=== PATIENT | male | born 1970 | race Caucasian/White ===

== ENCOUNTER 2018-11-12 08:58 | Emergency (ER) | payer OTHER ==
[2018-11-12] MEDS ORDERED: HYDROCODONE/APAP 10/325 TAB ONE (09:43)
[2018-11-12] MEDS ORDERED: IBUPROFEN 400 MG TAB ONE (09:43)
[2018-11-12] MEDS ORDERED: IBUPROFEN 200 MG TAB PO ONE (09:43)
--- NOTE | 2018-11-12 09:49 | EDPHYS ---
Physician Documentation [facility] Name: Daniel Murray Age: 48 yrs Sex: Male : 1970 Arrival Date: 11/12/2018 Time: 09:03 Bed 15 Private MD: ED Physician Moo Betancourt HPI: 11/12 09:34 This 48 yrs old Male presents to ER via Ambulatory with complaints of Wrist carlos Injury. 09:34 The patient or guardian reports decreased range of motion, pain, swelling, tenderness. carlos Historical: - Allergies: 09:14 No Known Allergies; tw2 - Home Meds: 09:14 None [Active]; tw2 - PMHx: 09:14 None; tw2 - PSHx: 09:14 None; tw2 - Immunization history:: Adult Immunizations. - Social history:: Smoking status: . - Ebola Screening: : No symptoms or risks identified at this time. - Family history:: not pertinent. ROS: 09:34 Constitutional: Negative for fever, chills, and weight loss, Eyes: Negative for injury, carlos pain, redness, and discharge, ENT: Negative for injury, pain, and discharge, Neck: Negative for injury, pain, and swelling, Cardiovascular: Negative for chest pain, palpitations, and edema, Respiratory: Negative for shortness of breath, cough, wheezing, and pleuritic chest pain, Abdomen/GI: Negative for abdominal pain, nausea, vomiting, diarrhea, and constipation, Back: Negative for injury and pain, : Negative for injury, bleeding, discharge, and swelling, Skin: Negative for injury, rash, and discoloration, Neuro: Negative for headache, weakness, numbness, tingling, and seizure, Psych: Negative for depression, anxiety, suicide ideation, homicidal ideation, and hallucinations, Allergy/Immunology: Negative for hives, rash, and allergies, Endocrine: Negative for neck swelling, polydipsia, polyuria, polyphagia, and marked weight changes, Hematologic/Lymphatic: Negative for swollen nodes, abnormal bleeding, and unusual bruising. 09:34 MS/extremity: Positive for decreased range of motion, pain, swelling, tenderness, of the right wrist. Exam: 09:34 Constitutional: This is a well developed, well nourished patient who is awake, alert, carlos and in no acute distress. Head/Face: Normocephalic, atraumatic. Eyes: Pupils equal round and reactive to light, extra-ocular motions intact. Lids and lashes normal. Conjunctiva and sclera are non-icteric and not injected. Cornea within normal limits. Periorbital areas with no swelling, redness, or edema. ENT: Nares patent. No nasal discharge, no septal abnormalities noted. Tympanic membranes are normal and external auditory canals are clear. Oropharynx with no redness, swelling, or masses, exudates, or evidence of obstruction, uvula midline. Mucous membranes moist. Neck: Trachea midline, no thyromegaly or masses palpated, and no cervical lymphadenopathy. Supple, full range of motion without nuchal rigidity, or vertebral point tenderness. No Meningismus. Chest/axilla: Normal chest wall appearance and motion. Nontender with no deformity. No lesions are appreciated. Cardiovascular: Regular rate and rhythm with a normal S1 and S2. No gallops, murmurs, or rubs. Normal PMI, no JVD. No pulse deficits. Respiratory: Lungs have equal breath sounds bilaterally, clear to auscultation and percussion. No rales, rhonchi or wheezes noted. No increased work of breathing, no retractions or nasal flaring. Abdomen/GI: Soft, non-tender, with normal bowel sounds. No distension or tympany. No guarding or rebound. No evidence of tenderness throughout. Back: No spinal tenderness. No costovertebral tenderness. Full range of motion. Male : Normal genitalia with no discharge or lesions. Skin: Warm, dry with normal turgor. Normal color with no rashes, no lesions, and no evidence of cellulitis. Neuro: Awake and alert, GCS 15, oriented to person, place, time, and situation. Cranial nerves II-XII grossly intact. Motor strength 5/5 in all extremities. Sensory grossly intact. Cerebellar exam normal. Normal gait. Psych: Awake, alert, with orientation to person, place and time. Behavior, mood, and affect are within normal limits. 09:34 Musculoskeletal/extremity: ROM: limited active range of motion, limited passive range of motion, limited active range of motion due to pain, limited passive range of motion due to pain, Circulation is intact in all extremities. Sensation intact. Compartment Syndrome exam of affected extremity: is normal. DVT Exam: No signs of deep vein thrombosis. no pain, no swelling, no tenderness, negative Homans' sign noted on exam, no appreciated bluish discoloration, no erythema, no increased warmth. Vital Signs: 09:13 BP 130 / 82; Pulse 78; Resp 18; Temp 97.8(O); Pulse Ox 95% on R/A; Weight 104.33 kg tw2 (R); Height 5 ft. 11 in. (180.34 cm) (R); Pain 6/10; 10:04 BP 127 / 77; Pulse 78; Resp 18; Pulse Ox 100% on R/A; tw2 09:13 Body Mass Index 32.08 (104.33 kg, 180.34 cm) tw2 MDM: 09:05 Patient medically screened. [facility] 09:43 Data reviewed: vital signs, nurses notes, radiologic studies, plain films. [facility] 11/12 09:15 Order name: XRAY Wrist RIGHT 3 view [facility] 11/12 09:33 Order name: Sugar Tong Forearm Splint; Complete Time: 10:00 [facility] 11/12 09:33 Order name: Sling; Complete Time: 10:00 [facility] Administered Medications: 09:45 Drug: Motrin 600 mg Route: PO; tw2 10:04 Follow up: Response: No adverse reaction tw2 09:45 Drug: Collins 10 mg-325 mg 1 tabs Route: PO; tw2 10:04 Follow up: Response: No adverse reaction; Pain is unchanged, physician notified; RASS: tw2 Alert and Calm (0) Disposition: 11/12/18 09:48 Discharged to Home. Impression: Nondisplaced fracture of neck of left radius. - Condition is Stable. - Discharge Instructions: Wrist Fracture Treated With Immobilization, Wrist Pain, Wrist Splint, Wrist Splint, [id number], Wrist Fracture Treated With Immobilization, [id number], Wrist Pain, [id number]. - Prescriptions for Ibuprofen 600 mg Oral Tablet - take 1 tablet by ORAL route every 8 hours As needed take with food; 21 tablet. Tylenol- Codeine #3 300-30 mg Oral Tablet - take 2 tablet by ORAL route every 6 hours As needed; 30 tablet. - Medication Reconciliation Form, Thank You Letter, Antibiotic Education, Prescription Opioid Use, Work release form form. - Follow up: Private Physician; When: 2 - 3 days; Reason: Recheck today's complaints, Re-evaluation by your physician. Follow up: Sheldon Bee MD; When: 2 - 3 days; Reason: Recheck today's complaints, Continuance of care, Re-evaluation by your physician. - Problem is new. - Symptoms have improved. Signatures: Dispatcher [employer] EDMoo Yang MD MD cha Wise, Tara RN RN tw2 Corrections: (The following items were deleted from the chart) 09:37 09:33 Ice pack ordered. carlos 2 10:05 09:48 11/12/2018 09:48 Discharged to Home. Impression: Nondisplaced fracture of neck of tw2 left radius. Condition is Stable. Forms are Work release form, Medication Reconciliation Form, Thank You Letter, Antibiotic Education, Prescription Opioid Use. Follow up: Private Physician; When: 2 - 3 days; Reason: Recheck today's complaints, Re-evaluation by your physician. Follow up: Dr. Sheldon Bee; When: 2 - 3 days; Reason: Recheck today's complaints, Continuance of care, Re-evaluation by your physician. Problem is new. Symptoms have improved. carlos
--- NOTE | 2018-11-12 09:49 | ER ---
[facility] Name: Daniel Murray Age: 48 yrs Sex: Male : 1970 Arrival Date: 11/12/2018 Time: 09:03 Bed 15 Private MD: Diagnosis: Nondisplaced fracture of neck of left radius Presentation: 11/12 09:11 Presenting complaint: Patient states: i fell yesterday and landed on my right wrist. tw2 Transition of care: patient was not received from another setting of care. Onset of symptoms was November 12, 2018. Risk Assessment: Do you want to hurt yourself or someone else? Patient reports no desire to harm self or others. Initial Sepsis Screen: Does the patient meet any 2 criteria? No. Patient's initial sepsis screen is negative. Does the patient have a suspected source of infection? No. Patient's initial sepsis screen is negative. Care prior to arrival: None. 09:11 Method Of Arrival: Ambulatory tw2 09:11 Acuity: SABA 4 tw2 Triage Assessment: 09:12 General: Appears in no apparent distress. Behavior is calm, cooperative, appropriate tw2 for age. Pain: Complains of pain in right wrist. EENT: No signs and/or symptoms were reported regarding the EENT system. Neuro: Level of Consciousness is awake, alert, obeys commands, Oriented to person, place, time, situation. Cardiovascular: Patient's skin is warm and dry. Respiratory: Airway is patent Respiratory effort is even, unlabored, Respiratory pattern is regular, symmetrical. Derm: No signs and/or symptoms reported regarding the dermatologic system. Musculoskeletal: Circulation, motion, and sensation intact. Range of motion: intact in all extremities, Swelling present in right wrist. Injury Description: from fall from standing. Historical: - Allergies: 09:14 No Known Allergies; tw2 - Home Meds: 09:14 None [Active]; tw2 - PMHx: 09:14 None; tw2 - PSHx: 09:14 None; tw2 - Immunization history:: Adult Immunizations. - Social history:: Smoking status: . - Ebola Screening: : No symptoms or risks identified at this time. - Family history:: not pertinent. Screenin:06 Abuse screen: Denies threats or abuse. Nutritional screening: No deficits noted. tw2 Tuberculosis screening: No symptoms or risk factors identified. Fall Risk None identified. Assessment: 09:14 Reassessment: see triage assessment. tw2 10:03 Reassessment: Patient appears in no apparent distress at this time. No changes from tw2 previously documented assessment. Patient and/or family updated on plan of care and expected duration. Pain level reassessed. Patient is alert, oriented x 3, equal unlabored respirations, skin warm/dry/pink. Vital Signs: 09:13 BP 130 / 82; Pulse 78; Resp 18; Temp 97.8(O); Pulse Ox 95% on R/A; Weight 104.33 kg tw2 (R); Height 5 ft. 11 in. (180.34 cm) (R); Pain 6/10; 10:04 BP 127 / 77; Pulse 78; Resp 18; Pulse Ox 100% on R/A; tw2 09:13 Body Mass Index 32.08 (104.33 kg, 180.34 cm) tw2 ED Course: 09:03 Patient arrived in ED. mr 09:05 Moo Betancourt MD is Attending Physician. carlos 09:05 Cyndee Rodriguez RN is Primary Nurse. tw2 09:06 Arm band placed on. tw2 09:07 Bed in low position. tw2 09:12 Triage completed. tw2 09:34 XRAY Wrist RIGHT 3 view In Process Unspecified. EDMS 09:43 Sheldon Bee MD is Referral Physician. carlos 10:01 Orthoglass splint: Sugar tong splint applied on right arm. Sling applied to right arm. mh5 10:04 No provider procedures requiring assistance completed. Patient did not have IV access tw2 during this emergency room visit. Administered Medications: 09:45 Drug: Motrin 600 mg Route: PO; tw2 10:04 Follow up: Response: No adverse reaction tw2 09:45 Drug: Tok 10 mg-325 mg 1 tabs Route: PO; tw2 10:04 Follow up: Response: No adverse reaction; Pain is unchanged, physician notified; RASS: tw2 Alert and Calm (0) Outcome: 09:48 Discharge ordered by . carlos 10:04 Discharged to home ambulatory. tw2 10:04 Discharged to home ambulatory, with significant other. 10:04 Condition: stable 10:04 Discharge instructions given to patient, significant other. 10:04 Discharge instructions given to patient, significant other, Instructed on discharge instructions, follow up and referral plans. no drinking with medication, no driving heavy equipment, medication usage, splint care Demonstrated understanding of instructions, follow-up care, medications, splint care, Prescriptions given X 2. 10:05 Patient left the ED. tw2 Signatures: Dispatcher [employer] EDMoo Yang MD MD cha Rivera, Mary mr Wise, Tara, RN RN 2 [facility]
--- NOTE | 2018-11-12 10:02 | RAD REPORT ---
EXAM DESCRIPTION: RAD - Wrist Right 3 View - 11/12/2018 9:33 am CLINICAL HISTORY: Right wrist pain status post injury FINDINGS: Cortical irregularity involves the distal posterior radius. Given the adjacent soft tissue swelling this is suspicious for a subtle fracture. No dislocation
[2018-11-12 10:15] VITALS: BP 127/77; O2SAT 100
[2018-11-12 10:17] VITALS: TEMP 97.8
== END 2018-11-12 10:05 | disposition home or self-care (01) ==
LOC: ER 08:58
DX: S52.135A Nondisplaced fracture of neck of left radius, initial encounter for closed fracture (principal); W18.30XA Fall on same level, unspecified, initial encounter; Y93.9 Activity, unspecified; Y92.9 Unspecified place or not applicable
CPT/HCPCS: 99284